=== PATIENT | female | born 1990 | race American Indian/Alaskan Native ===

== ENCOUNTER 2021-07-14 19:50 | Emergency (ER) | payer OTHER ==
[2021-07-14] MEDS ORDERED: IPRATROPIUM 0.02% NEBU 2.5 ML IH ONE (20:58)
[2021-07-14] MEDS ORDERED: ALBUTEROL 2.5 MG/3 ML NEBU IH ONE (20:58)
--- NOTE | 2021-07-14 21:33 | Emergency Department Report ---
ED Asthma HPI - General Chief Complaint: Adult Asthma Stated Complaint: ASTHMA ATTACK/RAYMOND Time Seen by Provider: 07/14/21 21:15 Source: patient Mode of arrival: Stretcher Limitations: No Limitations - History of Present Illness Initial Comments: 31 yo Obese F with history of chronic asthma who present with an episode that started intermittent yesterday. She says she has tried her home rescue with minimal improvement. Pt says she ran out of her albuterol solution. No fever or chills reported. And patient denies any other modifying or associated factors. MD Complaint: "asthma attack", wheezing - Related Data Previous Rx's Medication Instructions Recorded Last Taken Type ALBUTEROL NEB's [Proventil 0.083% 2.5 mg IH TID PRN 10 Days #4 neb NS 07/14/21 Unknown Rx NEBS] predniSONE [Deltasone] 20 mg PO QDAY 5 Days #5 tab NS 07/14/21 Unknown Rx Allergies Allergy/AdvReac Type Severity Reaction Status Date / Time No Known Allergies Allergy Verified 07/14/21 21:10 ED Review of Systems ROS: Stated complaint: ASTHMA ATTACK/RAYMOND Other details as noted in HPI Comment: All other systems reviewed and negative Respiratory: shortness of breath, wheezing Cardiovascular: denies: chest pain, palpitations, syncope ED Past Medical Hx - Past Medical History Previous Medical History?: Yes Hx Asthma: Yes - Surgical History Past Surgical History?: No - Social History Smoking Status: Never Smoker Substance Use Type: None - Medications Home Medications: Home Medications Medication Instructions Recorded Confirmed Last Taken Type ALBUTEROL NEB's [Proventil 0.083% 2.5 mg IH TID PRN 10 Days #4 neb NS 07/14/21 Unknown Rx NEBS] predniSONE [Deltasone] 20 mg PO QDAY 5 Days #5 tab NS 07/14/21 Unknown Rx ED Physical Exam - General Limitations: No Limitations General appearance: alert, in distress (due to sob and wheezing ) - Head Head exam: Present: normal inspection - Eye Eye exam: Present: normal appearance - ENT ENT exam: Present: normal exam, normal orophraynx, mucous membranes moist - Neck Neck exam: Present: normal inspection, full ROM. Absent: tenderness, meningismus - Respiratory Respiratory exam: Present: normal lung sounds bilaterally. Absent: respiratory distress, accessory muscle use - Cardiovascular Cardiovascular Exam: Present: regular rate, normal rhythm, normal heart sounds - GI/Abdominal GI/Abdominal exam: Present: soft, normal bowel sounds. Absent: distended, tenderness - Extremities Exam Extremities exam: Present: normal inspection, full ROM, normal capillary refill. Absent: tenderness, pedal edema, joint swelling - Back Exam Back exam: Present: normal inspection. Absent: tenderness - Neurological Exam Neurological exam: Present: alert, oriented X3 - Psychiatric Psychiatric exam: Present: normal affect, normal mood ED Course Vital Signs 07/14/21 07/14/21 20:11 21:04 Temperature 98 F Pulse Rate 112 H Pulse Rate [ 105 H Anterior] Respiratory 18 Rate Respiratory 18 Rate [Anterior] Blood Pressure 114/83 O2 Sat by Pulse 97 Oximetry - Reevaluation(s) Reevaluation #1: 07/14/21 21:34 here with wheezing likely asthma attack-- will go ahead and start continuous breathing treatment with O2 supplement--given solumedrol 125 mg IV x 1-- 07/14/21 21:36 Reevaluation #2: 07/14/21 22:54 Patient reevaluated and reports feeling much better after the breathing treatment--she however requested for albuterol solution to be discharged with--I will also discharge this patient with prescription for prednisone for 5 days to continue to help her symptoms. Critical care attestation.: If time is entered above; I have spent that time in minutes in the direct care of this critically ill patient, excluding procedure time. 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
[2021-07-14] MEDS ORDERED: methylPREDNISolone Sod Succinate 125 MG/2 ML INJ IV ONE (21:57)
[2021-07-15 00:17] VITALS: BP 128/82
== END 2021-07-15 00:17 | disposition home or self-care (01) ==
LOC: ED 19:50
DX: J45.909 Unspecified asthma, uncomplicated (principal)
CPT/HCPCS: 94644; 96374; 99283; J2930